=== PATIENT | male | born 1995 | race African-American/Black ===

== ENCOUNTER 2019-01-13 13:16 | Emergency (ER) | payer BC ==
[~2019-01-13] VITALS: Ht 182.9 cm; Wt 76.2 kg
--- NOTE | 2019-01-13 15:40 | PHYS DOC ---
Adult General Chief Complaint Chief Complaint: COUGH HPI HPI Patient is a 23 year old male who presents with 2 days of nasal congestion with nasal drainage and cough that is worse when he lays down at night. Patient states at times he will feel short of breath. Patient has no past medical history and takes no medications daily. Patient denies fever, nausea, vomiting, abdominal pain, diarrhea, smoking, drug use. Review of Systems Review of Systems Constitutional: Denies fever or chills [] Eyes: Denies change in visual acuity, redness, or eye pain [] HENT: nasal congestion or denies sore throat [] Respiratory: cough or shortness of breath [] Cardiovascular: No additional information not addressed in HPI [] GI: Denies abdominal pain, nausea, vomiting, bloody stools or diarrhea [] : Denies dysuria or hematuria [] Musculoskeletal: Denies back pain or joint pain [] Integument: Denies rash or skin lesions [] Neurologic: Denies headache, focal weakness or sensory changes [] All other systems were reviewed and found to be within normal limits, except as documented in this note. Allergies Allergies Allergies Coded Allergies Type Severity Reaction Last Updated Verified No Known Drug Allergies 01/13/19 No Physical Exam Physical Exam Constitutional: Well developed, well nourished, no acute distress, non-toxic appearance. [] HENT: Normocephalic, atraumatic, bilateral external ears normal, oropharynx moist, no oral exudates, nose normal. [] Eyes: PERRLA, EOMI, conjunctiva normal, no discharge. [] Neck: Normal range of motion, no tenderness, supple, no stridor. [] Cardiovascular:Heart rate regular rhythm, no murmur [] Lungs & Thorax: Bilateral breath sounds clear to auscultation [] Abdomen: Bowel sounds normal, soft, no tenderness, no masses, no pulsatile masses. [] Skin: Warm, dry, no erythema, no rash. [] Back: No tenderness, no CVA tenderness. [] Extremities: No tenderness, no cyanosis, no clubbing, ROM intact, no edema. [] Neurologic: Alert and oriented X 3, normal motor function, normal sensory function, no focal deficits noted. [] Psychologic: Affect normal, judgement normal, mood normal. [] Normal Physical Exam Current Patient Data Vital Signs Vital Signs Date Time Temp Pulse Resp B/P (MAP) Pulse Ox O2 Delivery O2 Flow Rate FiO2 01/13/19 16:25 102 16 134/91 (105) 99 Room Air 01/13/19 15:38 98.1 98.1 Lab Values Laboratory Tests Test 01/13/19 15:53 Influenza Type A Antigen Negative (NEGATIVE) Influenza Type B Antigen Negative (NEGATIVE) EKG EKG [] Radiology/Procedures Radiology/Procedures [] Impressions: [facility] [address] [place] [address] IMAGING REPORT Signed PATIENT: JOHANNA MAYFIELD ACCOUNT: [id number] : 1995 LOCATION: ER AGE: 23 SEX: M EXAM STATUS: REG ER ORD. PHYSICIAN: RAMONA HUMPHREYS APRN REASON: cough soa PROCEDURE: CHEST PA & LATERAL Chest radiograph 01/13/2019 3:34 PM INDICATION: Shortness of air COMPARISON: None available TECHNIQUE: Frontal and lateral views of the chest are provided. FINDINGS: The cardiomediastinal silhouette is within normal limits. There are no pleural effusions. There is no pulmonary vascular congestion. There is no pneumothorax. The lungs are clear. No significant osseous abnormality is identified. IMPRESSION: No acute cardiopulmonary process. Electronically signed by: Marce Davila MD (01/13/2019 4:08 PM) [facility] [place] DICTATED and SIGNED BY: MARCE DAVILA MD DATE: 01/13/19 2728 Course & Med Decision Making Course & Med Decision Making Patient is a 23 year old male who presents with 2 days of nasal congestion with nasal drainage and cough that is worse when he lays down at night. Patient states at times he will feel short of breath. Patient has no past medical history and takes no medications daily. Patient denies fever, nausea, vomiting, abdominal pain, diarrhea, smoking, drug use. Alert and oriented. Speaks in full clear sentences. Lungs are clear to auscultation in all lobes. Bilateral tympanic or pearly white. Patient denies a sore throat in his throat is pink without exudates or swelling. Skin pink warm and dry. Mucous membranes are moist. Abdomen is soft and nontender. Patient does state when he takes a deep breath he has some pain. Chest xray shows no acute findings. Dragon Disclaimer Dragon Disclaimer This electronic medical record was generated, in whole or in part, using a voice recognition dictation system. Departure Departure Impression: Primary Impression: Cough Additional Impression: Congestion of nasal sinus Disposition: HOME, SELF-CARE Condition: STABLE Referrals: UNKNOWN PCP NAME (PCP) Patient Instructions: Cough, Adult Additional Instructions: Follow up with primary care provider. Take medications as prescribed. Try using nasal sprays of allergy medications to dry up nasal secretions. Sleep elevated at night. Scripts Benzonatate (TESSALON PERLE) 100 Mg Capsule 1 CAP PO TID, #30 CAP Prov: RAMONA HUMPHREYS APRN 01/13/19 Methylprednisolone (MEDROL) 4 Mg Tab.ds.pk 1 PKG PO UD, #1 PKG Prov: RAMONA HUMPHREYS APRN 01/13/19 Problem Qualifiers RAMONA HUMPHREYS APRN Jan 13, 2019 15:39
--- NOTE | 2019-01-13 16:11 | RAD ---
Chest radiograph 01/13/2019 3:34 PM INDICATION: Shortness of air COMPARISON: None available TECHNIQUE: Frontal and lateral views of the chest are provided. FINDINGS: The cardiomediastinal silhouette is within normal limits. There are no pleural effusions. There is no pulmonary vascular congestion. There is no pneumothorax. The lungs are clear. No significant osseous abnormality is identified. IMPRESSION: No acute cardiopulmonary process. Electronically signed by: Allyson Davila MD (01/13/2019 4:08 PM) [facility] [place]
[2019-01-13] MEDS ORDERED: BENZ100C PO (16:14)
[2019-01-13] MEDS ORDERED: METH4TAB2 PO (16:14)
[2019-01-13 16:25] VITALS: BP 134/91
[2019-01-13 16:45] LABS: INFLUENZA A PATIENT NEGATIVE (NEGATIVE); INFLUENZA B PATIENT NEGATIVE (NEGATIVE)
== END 2019-01-13 17:21 | disposition home or self-care (01) ==
LOC: ER 13:16
DX: R09.81 Nasal congestion (principal); R05 Cough
CPT/HCPCS: 71046; 87804; 99284-25